=== PATIENT | male | born 1985 | race Two or more races ===

== ENCOUNTER 2019-11-15 02:02 | Emergency (ER) | payer OTHER ==
[~2019-11-15] VITALS: Ht 180.3 cm; Wt 81.6 kg
[2019-11-15 02:13] VITALS: BP 112/88
--- NOTE | 2019-11-15 02:55 | Emergency Room Report ---
History of Present Illness General Chief Complaint: General Complaint Source: Patient Present Illness HPI Is a 34-year-old male with history of bipolar. He presents with chief plaint of not feeling well. Patient said he lives in [place] and was visiting his grandfather who lives in [place]. He said he took an Uber to get here. He appeared to be homeless and called [address]. Patient denies any particular complaint other than not feeling well. Patient is a poor historian and not cooperative. He multiple tape bennett and IV bennett on his upper extremities from previous ER visits. He told me he was at a hospital in [place] yesterday. Patient denies suicidal or homicidal thought. He denies any drug use. Allergies: Coded Allergies: No Known Allergies (Unverified , 11/15/19) COVID-19 Screening Contact w/high risk pt: No Experienced COVID-19 symptoms?: No COVID-19 Testing performed SPORT INTERN: No Patient History Past Medical History: see triage record, old chart reviewed, HTN, psych hx Past Surgical History: none Pertinent Family History: none Social History: Denies: smoking Immunizations: other Reviewed Nursing Documentation: PMH: Agreed; PSxH: Agreed Nursing Documentation-PMH Hx Hypertension: Yes History Of Psychiatric Problem: Yes - depression- bipolar Review of Systems Eye: Denies: eye pain, blurred vision ENT: Denies: ear pain, nose congestion, throat swelling Respiratory: Denies: cough, shortness of breath Cardiovascular: Denies: chest pain, palpitations Gastrointestinal: Denies: abdominal pain, diarrhea, nausea, vomiting Musculoskeletal: Denies: back pain, joint pain Skin: Denies: rash Neurological: Denies: headache, numbness Endocrine: Denies: increased thirst, increased urine Hematologic/Lymphatic: Denies: easy bruising All Other Systems: negative except mentioned in HPI Physical Exam Vital Signs Date Time Temp Pulse Resp B/P (MAP) Pulse Ox O2 Delivery O2 Flow Rate FiO2 11/15/19 02:05 98.1 96 16 109/84 (92) 99 Room Air Vitals normal Sp02 EP Interpretation: reviewed, normal General Appearance: well appearing, no apparent distress, alert Head: normocephalic, atraumatic Eyes: bilateral eye PERRL, bilateral eye EOMI ENT: hearing grossly normal, normal pharynx Neck: full range of motion, supple, no meningismus Respiratory: chest non-tender, lungs clear, normal breath sounds Cardiovascular #1: regular rate, rhythm, no murmur Gastrointestinal: normal bowel sounds, non tender, no mass, no organomegaly, no bruit, non-distended Musculoskeletal: back normal, normal range of motion, gait/station normal Psychiatric: mood/affect normal Medical Decision Making Diagnostic Impression: Primary Impression: Weakness generalized ER Course Patient complaint of generalized weakness and not feeling well. He has no cough or congestion. Lungs are clear. Is walking around without any difficulty. First thing he he asked for when he came to the ER was a place to lay down and sleep. Will discharge home in the morning. Last Vital Signs Date Time Temp Pulse Resp B/P (MAP) Pulse Ox O2 Delivery O2 Flow Rate FiO2 11/15/19 02:13 90 16 Room Air 11/15/19 02:13 98.1 112/88 99 Status: improved Disposition: HOME, SELF-CARE Condition: Stable Additional Instructions: Follow-up with your doctor in 7 days. Return if symptoms worsen. Feroz Mccarty MD Nov 15, 2019 02:55
[2019-11-15 05:50] VITALS: BP 115/89
== END 2019-11-15 05:50 | disposition home or self-care (01) ==
LOC: EDBD 02:02 → EMR 02:40
DX: R53.1 Weakness (principal); F31.9 Bipolar disorder, unspecified; I10 Essential (primary) hypertension; F32.9 Major depressive disorder, single episode, unspecified; Z59.0 Homelessness
CPT/HCPCS: 99281